=== PATIENT | female | born 1955 | race Caucasian/White ===

== ENCOUNTER → 2019-10-07 | Outpatient (CLI) | payer BC, SELFPAY | END | disposition home or self-care (01) | PROVIDERS: Referring Provider Nurse Practitioner; Visit Provider Nurse Practitioner | DX: J34.89 Other specified disorders of nose and nasal sinuses (principal) | CPT/HCPCS: 87070; 87205 ==

== ENCOUNTER → 2020-04-30 | Outpatient (CLI) | payer OTHER, SELFPAY ==
[2020-04-30 15:52] VITALS: BMI 32.9
== END | disposition home or self-care (01) ==
PROVIDERS: Visit Provider Nurse Practitioner
DX: J34.89 Other specified disorders of nose and nasal sinuses (principal)
CPT/HCPCS: 87070; 87205